=== PATIENT | female | born 1980 | race Caucasian/White ===

== ENCOUNTER → 2018-09-17 10:08 | Outpatient (CLI) | payer OTHER, MEDICAID, SELFPAY ==
--- NOTE | 2018-09-17 | DI.US.S_ITS ---
PROCEDURE: US ABDOMEN COMPLETE INDICATIONS: GENERALIZED ABDOMINAL AND PELVIC PAIN TECHNIQUE: Real-time scanning was performed of the abdominal and retroperitoneal organs, with image documentation. COMPARISON: None. FINDINGS: Liver: Liver is normal in size and homogeneous in echotexture. Gallbladder: Negative. No gallstones or gallbladder wall thickening identified. No pericholecystic fluid or sonographic Osborne sign Biliary ducts: Intrahepatic bile ducts are non-dilated. Extrahepatic bile duct caliber measures 2-4 mm. Normal is 6-7 mm or less in diameter, or 10 mm or less post-cholecystectomy. Pancreas: Visualized portions of the pancreas are sonographically normal. Spleen: Spleen is normal in size and homogeneous in echotexture. Kidneys: Kidneys are normal in size and echotexture. Right kidney measures 10.8 cm long; left kidney measures 10.2 cm long. No hydronephrosis or nephrolithiasis. No solid masses. Aorta: Visualized aorta is normal in caliber at less than 3 cm. Iliacs: Not well visualized due to shadowing bowel gas IVC: Intrahepatic inferior vena cava is patent. Miscellaneous: No free abdominal fluid. IMPRESSION: No acute abnormality seen. Normal appearance of the gallbladder Dictated by: Joshua Yates M.D. on 09/17/2018 at 13:58 Approved by: Joshua Yates M.D. on 09/17/2018 at 14:00
--- NOTE | 2018-09-17 | DI.US.S_ITS ---
PROCEDURE: US PELVIC COMPLETE INDICATIONS: PELVIC AND POST COITAL PAIN TECHNIQUE: Real-time scanning was performed of the pelvic organs, with image documentation. Additional endovaginal scanning was necessary due to incomplete visualization of the adnexal and endometrial structures by transabdominal scanning. COMPARISON: None. FINDINGS: Transabdominal scanning: Limited scanning through the kidneys shows no hydronephrosis. No pathologic free abdominal or pelvic fluid. Endovaginal scanning: Uterus: Uterus is normal in size at 9.7 x 4.0 x 5.9 cm. The endometrium measures 15 mm in combined thickness. Ovaries: Right ovary measures 3.7 x 1.8 x 3.0 cm. A presumed complex hemorrhagic right ovarian cyst measuring 2.2 x 1.3 x 1.4 cm. Left ovary measures 3.8 x 2.1 x 1.1 cm. Simple left physiologic follicle measuring 1.1 x 1.6 x 1.1 cm IMPRESSION: 2.2 cm presumed hemorrhagic involuting right ovarian cyst. At clinical discretion, followup could be performed to document resolution in 6-12 weeks. Dictated by: Joshua Yates M.D. on 09/17/2018 at 14:00 Approved by: Joshua Yates M.D. on 09/17/2018 at 14:03
== END ==
PROVIDERS: PCP Family Medicine; Visit Provider Family Medicine
DX: R10.2 Pelvic and perineal pain (principal); R10.84 Generalized abdominal pain; N94.10 Unspecified dyspareunia; N94.0 Mittelschmerz
CPT/HCPCS: 76700; 76830; 76856

== ENCOUNTER → 2019-02-06 10:40 | Outpatient (CLI) | payer OTHER, MEDICAID, SELFPAY ==
--- NOTE | 2019-02-06 | DI.US.S_ITS ---
PROCEDURE: US PELVIC COMPLETE INDICATIONS: PELVIC PAIN TECHNIQUE: Real-time scanning was performed of the pelvic organs, with image documentation. Additional endovaginal scanning was necessary due to incomplete visualization of the adnexal and endometrial structures by transabdominal scanning. COMPARISON: [facility], , US PELVIC COMPLETE, 09/17/2018, 11:01. FINDINGS: Transabdominal scanning: Limited scanning through the kidneys shows no hydronephrosis. No pathologic free abdominal or pelvic fluid. Endovaginal scanning: Uterus: Uterus is normal in size at 9.7 x 4.0 x 5 point cm. ? Bicornuaet uterine morphology present. The endometrium measures 1.1 mm in combined thickness. Ovaries: Ovaries are normal in size measuring 3.2 x 1.9 x 2.6 cm on the right and 4.0 x 2.7 x 2.9 cm on the left. Decrease in size of thick walled, complex right ovarian cyst now measuring 1.2 x 1.1 x 1.2 cm. 2 simple cysts associated with the left ovary largest measuring 2.3 x 2.1 x 1.9 cm. 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 Decrease in size of hemorrhagic appearing cyst involving the right ovary. Simple left ovarian cyst. Dictated by: Brien SERRANO Interpreted: Vale Anderson MD on 02/06/2019 at 11:45 Approved by: Vale Anderson M.D. on 02/06/2019 at 16:04
== END ==
PROVIDERS: PCP Family Medicine; Visit Provider Family Medicine
DX: R10.2 Pelvic and perineal pain (principal); N83.292 Other ovarian cyst, left side; N83.291 Other ovarian cyst, right side
CPT/HCPCS: 76830; 76856

== ENCOUNTER → 2019-07-30 11:44 | Outpatient (CLI) | payer OTHER, MEDICAID, SELFPAY ==
--- NOTE | 2019-07-30 11:45 | DI.US.S_ITS ---
PROCEDURE: US PELVIC COMPLETE INDICATIONS: PELVIC PAIN TECHNIQUE: Real-time scanning was performed of the pelvic organs, with image documentation. Additional endovaginal scanning was necessary due to incomplete visualization of the adnexal and endometrial structures by transabdominal scanning. COMPARISON: [facility], , PELVIC COMPLETE, 02/06/2019, 10:56. FINDINGS: Transabdominal scanning: Limited scanning through the kidneys shows no hydronephrosis. No pathologic free abdominal or pelvic fluid. Endovaginal scanning: Uterus: Uterus is normal in size at 8.8 x 4.1 x 6.2 cm. The endometrium measures 13 mm in combined thickness. Suggestion of septate versus bicornuate uterine morphology. Ovaries: Right ovary measures 5.4 x 2.4 x 3.6 cm. There is a 3.0 x 1.9 x 2.8 cm complicated cyst in the right ovary. Probable physiologic cyst is also noted measuring 1.4 cm. The left ovary was only visualized transabdominally and measured 1.4 x 0.7 x 1.2 cm. No left-sided ovarian/adnexal mass lesion. IMPRESSION: 1. A 3.0 cm complicated right ovarian cyst. Recommend followup pelvic ultrasound in 6-12 weeks to document stability versus resolution. 2. Suggestion of possible septate versus bicornuate uterine morphology. Consider further characterization by a pelvic MRI if confirmation of morphology is needed for clinical management requirements. 3. No acute sonographic abnormalities identified in the pelvis. Dictated by: Jose Cedeno M.D. on 07/30/2019 at 12:50 Approved by: Jose Cedeno M.D. on 07/30/2019 at 12:56
== END ==
PROVIDERS: PCP Family Medicine; Visit Provider Obstetrics & Gynecology
DX: R10.2 Pelvic and perineal pain (principal); N83.291 Other ovarian cyst, right side; Z87.42 Personal history of other diseases of the female genital tract
CPT/HCPCS: 76830; 76856

== ENCOUNTER → 2019-08-26 18:10 | Outpatient (CLI) | payer OTHER, MEDICAID, SELFPAY ==
--- NOTE | 2019-08-26 | DI.MG.S_ITS ---
BILATERAL DIGITAL SCREENING MAMMOGRAM 3D/2D WITH CAD: 08/26/2019 CLINICAL: Routine screening. Baseline exam. Baseline exam. No prior exams were available for comparison. The tissue of both breasts is extremely dense, which lowers the sensitivity of mammography. Current study was also evaluated with a Computer Aided Detection (CAD) system. No significant masses, calcifications, or other findings are seen in either breast. IMPRESSION: NEGATIVE There is no mammographic evidence of malignancy. A 1 year screening mammogram is recommended. This exam was interpreted at Station ID: [id number]. NOTE: For mammograms, a report in lay terms will be sent to the patient. Approximately 15% of breast malignancies will not be visualized mammographically. In the management of a palpable breast mass, a negative mammogram must not discourage biopsy of a clinically suspicious lesion. Electronically Signed By: Daniel Vasquez M.D. [facility] [place]/:08/26/2019 19:05:00 letter sent: Normal Exam ACR BI-RADS Category 1: Negative [id number]
== END ==
PROVIDERS: PCP Family Medicine; Visit Provider Family Medicine
DX: Z12.31 Encounter for screening mammogram for malignant neoplasm of breast (principal)
CPT/HCPCS: 77063; 77067

== ENCOUNTER → 2020-11-02 16:12 | Outpatient (CLI) | payer OTHER, MEDICAID, SELFPAY ==
--- NOTE | 2020-11-02 | DI.US.S_ITS ---
PROCEDURE: US PELVIC COMPLETE INDICATIONS: OVARIAN CYST TECHNIQUE: Real-time scanning was performed of the pelvic organs, with image documentation. Additional endovaginal scanning was necessary due to incomplete visualization of the adnexal and endometrial structures by transabdominal scanning. COMPARISON: [facility], US, US PELVIC COMPLETE, 10/20/2019, 16:17. FINDINGS: Uterus: Uterus is enlarged measuring 11.2 x 4.9 x 5.8 cm. The endometrium measures 6-7 mm in combined thickness. Possible arcuate or septate uterus incidentally noted, no definite bicornuate appearance seen on today's examination. This could be more definitively evaluated with pelvic MRI as clinically necessary. Ovaries: Right ovary measures 2.6 x 1.3 x 1.8 cm. The left ovary measures 3.1 x 2.0 x 2.3 cm. Left ovarian follicle measuring 2.3 cm with simple appearance. There is mild right sided free fluid which could be physiologic. No evidence of ovarian torsion with Doppler interrogation. Other: No pathologic free abdominal or pelvic fluid. IMPRESSION: Interval resolution of right ovarian cyst. Dictated by: Joshua Yates M.D. on 11/03/2020 at 10:25 Approved by: Joshua Yates M.D. on 11/03/2020 at 10:29
--- NOTE | 2020-11-02 | DI.MG.S_ITS ---
BILATERAL DIGITAL SCREENING MAMMOGRAM 3D/2D WITH CAD: 11/02/2020 CLINICAL: Routine screening. Comparison is made to exam dated: 08/26/2019 [facility]. The tissue of both breasts is extremely dense, which lowers the sensitivity of mammography. Current study was also evaluated with a Computer Aided Detection (CAD) system. No significant masses, calcifications, or other findings are seen in either breast. There has been no significant interval change. IMPRESSION: NEGATIVE There is no mammographic evidence of malignancy. A 1 year screening mammogram is recommended. This exam was interpreted at Station ID: [id number]. NOTE: For mammograms, a report in lay terms will be sent to the patient. Approximately 15% of breast malignancies will not be visualized mammographically. In the management of a palpable breast mass, a negative mammogram must not discourage biopsy of a clinically suspicious lesion. Electronically Signed By: Bob Fitch acr/go:11/02/2020 16:31:05 letter sent: Normal Exam ACR BI-RADS Category 1: Negative 3341F
== END ==
PROVIDERS: PCP Family Medicine; Referring Provider Family Medicine; Visit Provider Family Medicine
DX: Z12.31 Encounter for screening mammogram for malignant neoplasm of breast (principal); N83.201 Unspecified ovarian cyst, right side
CPT/HCPCS: 76830; 76856; 77063; 77067

== ENCOUNTER 2021-07-22 12:00 | Emergency (ER) | payer OTHER, MEDICAID, SELFPAY ==
[2021-07-22 12:09] VITALS: BP 160/105; PULSE 96; RESP 14; TEMP 35.9; O2SAT 100; BMI 27.7
--- NOTE | 2021-07-22 12:12 | DI.RAD.S_ITS ---
PROCEDURE: XR CHEST 1V INDICATIONS: chest pain TECHNIQUE: One view of the chest was acquired. COMPARISON: None. FINDINGS: Surgical changes and devices: None. Lungs and pleura: There are indistinct right perihilar ground-glass opacities. No pleural effusions or pneumothorax. Mediastinum: Mediastinal contours appear normal. Heart size is normal. Bones and chest wall: No suspicious bony lesions. Overlying soft tissues appear unremarkable. IMPRESSION: 1. Indistinct right perihilar ground-glass opacities are nonspecific and may reflect pneumonia, asymmetric edema, or an inflammatory process among other etiologies. Recommend correlation clinically. Dictated by: Faheem Giles M.D. on 07/22/2021 at 14:00 Approved by: Faheem Giles M.D. on 07/22/2021 at 14:04
[2021-07-22 12:53] LABS: Add Manual Diff / Slide Review NO; Basophils Absolute Auto 100 /uL (0-100); Eosinophils Absolute Auto 100 /uL (0-450); Eosinophils Percent Auto 0.7 % (2-4); Hematocrit 38.3 % (36-46); Hemoglobin 12.8 g/dL (12.0-16.0); Lymphocytes Absolute Auto 1300 /uL (1100-4500); Mean Corpuscular HGB Conc 33.4 % (30-36); Mean Corpuscular Hemoglobin 30.5 PG (26-34); Mean Corpuscular Volume 91.2 fL (80-100); Monocytes Absolute Auto 400 /uL (0-900); Monocytes Percent Auto 5.4 % (3-14); Neutrophils Absolute Auto 5100 /uL (1500-7000); Neutrophils Percent Auto 73.9 % (50-75); Platelet Count 269 X10^3/uL (150-400); Red Cell Distribution Width 12.5 % (11.6-14.8); White Blood Cell Count 6.8 X10^3/uL (4.5-11.0)
[2021-07-22 13:01] LABS: D Dimer 245 ng/mL (<230)
[2021-07-22 13:04] LABS: Alanine Aminotransferase 7 IU/L (<35); Albumin 4.4 g/dL (3.5-5.0); Albumin Globulin Ratio 1.9 (1.0-2.8); Alkaline Phosphatase 245 U/L (38-126); Aspartate Aminotransferase 26 IU/L (14-36); BUN Creatinine Ratio 14.5 (6-22); Bilirubin Total 0.4 mg/dL (0.2-1.3); Blood Urea Nitrogen 8 mg/dL (7-17); Calcium 9.4 mg/dL (8.4-10.2); Carbon Dioxide 25 mmol/L (22-32); Chloride 105 mmol/L (98-107); Creatine Kinase 110 U/L (30-135); Estimated Glomerular Filt Rate > 60.0 mL/min (>60); Globulin 2.3 g/dL (1.7-4.1); Glucose 92 mg/dL (70-100); HEMOLYSIS < 15 (0-50); Lipase 32 U/L (23-300); Potassium 4.2 mmol/L (3.4-5.1); Sodium 139 mmol/L (137-145); Total Protein 6.7 g/dL (6.3-8.2)
[2021-07-22 13:15] LABS: Troponin I < 0.012 ng/mL (0.01-0.034)
[2021-07-22 13:19] LABS: CKMB % Relative Index 0.4 % (1.5-5.0); Creatine Kinase MB 0.47 ng/mL (<2.37)
[2021-07-22 16:52] VITALS: BP 161/103; PULSE 95; O2SAT 99
[2021-07-22 17:36] VITALS: PULSE 82
[2021-07-22 18:00] VITALS: PULSE 82
--- NOTE | 2021-07-22 18:18 | ED_ITS ---
HPI - Chest Pain General Chief Complaint: Chest Pain Stated Complaint: Heart Issues, Chest Pain, Abnormal EKG Time Seen by Provider: 07/22/21 18:14 Source: patient Mode of arrival: Ambulatory Limitations: no limitations History of Present Illness HPI narrative: This is a 41-year-old female comes emergency department sent by her primary care provider. Patient had COVID approximately a month ago. She has continued to have some mild dry cough which has been nonproductive she continues to have anosmia with loss of taste and smell. Patient states that she has had some heart palpitations that sometimes feel fast or irregular but not persistently. She denies any chest pain or pressure. She does sometimes feel short of breath particularly with exertion. She has not had any lightheadedness or syncope. She noted that her hands been slightly swollen bilaterally but not persistently. She denies any nausea or vomiting. No issues with bowel movements. No urinary symptoms. No diaphoresis. Patient takes lorazepam and and [place] as needed sometimes cyclobenzaprine and ibuprofen but no other daily prescription medications. She has had multiple surgeries for bilateral cleft palate, partial thyroidectomy. She is allergic to Neosporin. No tobacco, occasional alcohol and no illicit. Family history significant for dad who had a bypass at age 65 but no other known cardiac, pulmonary or embolic history. Related Data Home Medications Medication Instructions Recorded Confirmed cyclobenzaprine 10 mg tablet 10 mg PO TID 10/20/19 10/20/19 flibanserin 100 mg tablet (Addyi) 100 mg PO BEDTIME 10/20/19 10/20/19 hydrocodone 5 mg-acetaminophen 325 1 tab PO Q6H PRN 10/20/19 10/20/19 mg tablet lorazepam PO 10/20/19 10/20/19 polyethylene glycol 3350 17 17 gram PO DAILY 10/20/19 10/20/19 gram/dose oral powder (Miralax) rizatriptan 5 mg tablet 5 mg PO ONCE 10/20/19 10/20/19 Previous Rx's Medication Instructions Recorded ibuprofen 600 mg tablet 600 mg PO Q6HP PRN #30 tab-cap 03/01/17 Allergies Allergy/AdvReac Type Severity Reaction Status Date / Time neomycin [NEOMYCIN] Allergy Mild HIVES AND Verified 07/22/21 12:09 RASH polymyxin B [POLYMYXIN B] Allergy Mild HIVES AND Verified 07/22/21 12:09 RASH Sulfa (Sulfonamide Allergy Verified 07/22/21 12:09 Antibiotics) silk tape Allergy Mild rash and Uncoded 10/20/19 15:51 welts Review of Systems Review of Systems ROS Unobtainable: All systems reviewed & are unremarkable except as noted in HPI and below Patient History Social History Smoking Status: Unknown if ever smoked Smoking Status: Unknown if ever smoked alcohol intake frequency: holidays/special occasions only Substance Use Type: does not use Exam Narrative Exam Narrative: GENERAL: Alert and oriented x three, female in mild distress. HEENT: Head normocephalic, atraumatic, EOMI, pupils reactive, face symmetric, moist mucous membranes NECK: Supple, full range of motion CARDIOVASCULAR: Regular rate and rhythm without murmurs, rubs or gallops. RESPIRATORY: Breath sounds equal bilaterally, no wheezes rales or rhonchi. ABDOMEN: Soft, nontender. Normoactive bowel sounds all 4 quadrants. No guarding or rebound, rigidity, no mass : No CVA tenderness EXTREMITIES: Normal range of motion, no clubbing or edema bilateral hands or feet. Neurovascularly intact NEUROLOGICAL: Cranial nerves II through XII grossly intact. Moving all extremities SKIN: Warm, dry, no petechiae, no rashes or lesions. Initial Vital Signs Initial Vital Signs: Vital Signs Temperature 96.7 F L 07/22/21 12:09 Pulse Rate 96 H 07/22/21 12:09 Respiratory Rate 14 07/22/21 12:09 Blood Pressure 160/105 H 07/22/21 12:09 Pulse Oximetry 100 07/22/21 12:09 Scores HEART Score Heart Score history: Slightly Suspicious Heart Score EKG: Significant ST depression Heart Score Age: < 45 years old Heart Score risk factors: 1-2 risk factors Heart Score troponin: < or = to normal limit Heart Score Total: 3 PERC Score Age greater than or equal to 50 years: No Heart rate greater than or equal to 100 bpm: No Room Air O2 Sat less than 95%: No Unilateral leg swelling: Yes Recent trauma or surgery: No Hemoptysis: No Prior PE or DVT: No Hormone Use: No Total PERC Score: 1 Course Orders Ordered: ED Orders 07/22/21 12:12 XR chest 1V Stat EKG-12 Lead Stat 07/22/21 12:15 Complete Blood Count AUTO DIFF Stat Comprehensive Metabolic Panel Stat DD [D Dimer] Stat Lipase Stat Troponin & CK Cardiac Panel Stat 07/22/21 18:39 CT angio chest PE protocol Stat Vital Signs Vital signs: Vital Signs - 8 hr 07/22/21 16:52 07/22/21 17:36 07/22/21 18:00 Pulse Rate 95 H 82 82 Respiratory Rate Blood Pressure 161/103 H Pulse Oximetry 99 07/22/21 18:30 07/22/21 19:14 Pulse Rate 89 Respiratory Rate 21 Blood Pressure Pulse Oximetry 95 MDM - Chest Pain Lab Data Result diagrams: 07/22/21 12:15 07/22/21 12:15 Labs: Lab Results 07/22/21 07/22/21 07/22/21 Range/Units 12:15 12:15 12:15 WBC 6.8 (4.5-11.0) X10^3/uL RBC 4.20 (4.0-5.2) X10^6/uL Hgb 12.8 (12.0-16.0) g/dL Hct 38.3 (36-46) % MCV 91.2 (80-100) fL MCH 30.5 (26-34) PG MCHC 33.4 (30-36) % RDW 12.5 (11.6-14.8) % Plt Count 269 (150-400) X10^3/uL Neut % (Auto) 73.9 (50-75) % Lymph % (Auto) 19.0 L (25-40) % Alfalfa % (Auto) 5.4 (3-14) % Eos % (Auto) 0.7 L (2-4) % Baso % (Auto) 1.0 (0-2) % Neut # (Auto) 5100 (9237-2252) /uL Lymph # (Auto) 1300 (5734-8846) /uL Alfalfa # (Auto) 400 (0-900) /uL Eos # (Auto) 100 (0-450) /uL Baso # (Auto) 100 (0-100) /uL D-Dimer 245 H (<230) ng/mL Sodium 139 (137-145) mmol/L Potassium 4.2 (3.4-5.1) mmol/L Chloride 105 (98-107) mmol/L Carbon Dioxide 25 (22-32) mmol/L BUN 8 (7-17) mg/dL Creatinine 0.55 (0.52-1.04) mg/dL Estimated GFR > 60.0 (>60) mL/min BUN/Creatinine Ratio 14.5 (6-22) Glucose 92 (70-100) mg/dL Calcium 9.4 (8.4-10.2) mg/dL Total Bilirubin 0.4 (0.2-1.3) mg/dL AST 26 (14-36) IU/L ALT 7 (<35) IU/L Alkaline Phosphatase 245 H (38-126) U/L Total Creatine Kinase 110 (30-135) U/L CK-MB (CK-2) 0.47 (<2.37) ng/mL CK-MB (CK-2) Rel Index 0.4 L (1.5-5.0) % Troponin I < 0.012 (0.01-0.034) ng/mL Total Protein 6.7 (6.3-8.2) g/dL Albumin 4.4 (3.5-5.0) g/dL Globulin 2.3 (1.7-4.1) g/dL Albumin/Globulin Ratio 1.9 (1.0-2.8) Lipase 32 (23-300) U/L Imaging Data Chest x-ray: Radiologist's Impression: BlancaCasandra??41??F??1980 ? Allergy/Adv: neomycin, polymyxin B, Sulfa (Sulfonamide Antibiotics), [silk tape] (More??) Close Chest X-Ray (Signed) Faheem Giles - 07/22/21 Pelvis Ultrasound (Signed) Joshua Yates - 11/02/20 Mammogram Screening (Signed) Bob Fitch - 11/02/20 Mammogram Screening (Signed) Daniel Vasquez - 08/26/19 Pelvis Ultrasound (Signed) Jose Cedeno - 07/30/19 Pelvis Ultrasound (Signed) Aristeo Anderson - 02/06/19 Pelvis Ultrasound (Signed) Joshua Yates - 09/17/18 Abdomen Ultrasound (Signed) Joshua Yates - 09/17/18 Launch?[address] [address] XRay Report Signed Patient: Casandra Rios MR#: [id number] : 1980 Acct:[id number] Age/Sex: 41 / F Date of Service: 07/22/21 Loc: ED Accession Number: [id number] ?? Procedure: XR chest 1V Ordering Provider: Deena Titus MD PROCEDURE:? XR CHEST 1V ? INDICATIONS:? chest pain ? TECHNIQUE:? One view of the chest was acquired.? ? COMPARISON:? None. ? FINDINGS:? ? Surgical changes and devices:? None.? ? Lungs and pleura:? There are indistinct right perihilar ground-glass opacities.? No pleural effusions or pneumothorax.? ? Mediastinum:? Mediastinal contours appear normal.? Heart size is normal.? ? Bones and chest wall:? No suspicious bony lesions.? Overlying soft tissues appear unremarkable.? ? IMPRESSION:? ? 1. Indistinct right perihilar ground-glass opacities are nonspecific and may r eflect pneumonia, asymmetric edema, or an inflammatory process among other etiologies.? Recommend correlation clinically.? ? ? Dictated by: Faheem Giles M.D. on 07/22/2021 at 14:00 ? ? Approved by: Faheem Giles M.D. on 07/22/2021 at 14:04 ECG Data Attestation: I personally reviewed and interpreted this ECG as follows: Prior ECG tracings: not available for review Interpretation: EKG sinus rhythm, rate of 100 LA 164 QRS [address] depression in V4 6. Inverted T-waves in 2 3 AVF with no obvious elevation appreciated. No priors available for comparison. MDM Narrative Medical decision making narrative: This is a 41-year-old female who was sent with palpitations occasional shortness of breath who is approximately a month post COVID. Patient does have some EKG changes she does not have a prior for comparison. She does have some cardiac history but her symptomatology does not seem consistent with acute coronary syndrome. Patient labs reflect a slightly elevated D-dimer this may be more secondary to COVID but with her symptoms of palpitations and dyspnea with exertion we discussed and decision was made to PE scan. Patient's chest x-ray does show some changes I suspect these are post COVID changes. Patient vitals here show some hypertension and pulse in the 90s but no hypoxia and no hypotension at any time. CT angio is negative but shows a small 3mm pulmonary nodule. Is were reviewed with patient. She has had some hypertension but normal oxygenation throughout stay. Discharge Plan Departure Patient Disposition: Home Clinical Impression: Heart palpitations, Pulmonary nodule Instructions: DI for Pulmonary Nodule Activity Restrictions/Additional Instructions: The changes on your chest x-ray did today are likely from your recent COVID infection. You do have some changes to your EKG but no clear changes to your enzyme and I recommend following up with your primary care provider for stress testing in the future particularly with your family history. Your labs today are reassuring, here CT of your chest shows a small pulmonary nodule. Discuss with your physician. Please return for new or worsening symptoms, chest pain, lightheadedness or passing out, persistent vomiting, worsening shortness of breath, new swelling in her extremities or other new or concerning symptoms. Prescriptions: No Action ibuprofen 600 MG tablet 600 mg PO Q6HP PRNQty: 30 RF: 0 hydrocodone-acetaminophen 5-325 mg tablet 1 tab PO Q6H PRNRF: 0 cyclobenzaprine 10 mg tablet 10 mg PO TID RF: 0 lorazepam PO RF: 0 Addyi 100 mg tablet 100 mg PO BEDTIME RF: 0 rizatriptan 5 mg tablet 5 mg PO ONCE RF: 0 polyethylene glycol 3350 [Miralax] 17 gram/dose powder 17 gram PO DAILY RF: 0 Referrals: Altaf Del Rio MD [Primary Care Provider] -
[2021-07-22 18:30] VITALS: PULSE 89; RESP 21
--- NOTE | 2021-07-22 18:39 | DI.CT.S_ITS ---
PROCEDURE: CT ANGIO CHEST PE PROTOCOL INDICATIONS: recent covid infx-resolved, palpitations, chest pain, sob TECHNIQUE: After the administration of intravenous contrast, 2 mm thick sections acquired from the pulmonary apices to the posterior costophrenic angles. 3-dimensional maximum intensity projection (MIP) coronal and sagittal reformats were then acquired through the thorax. For radiation dose reduction, the following was used: automated exposure control, adjustment of mA and/or kV according to patient size. COMPARISON: [facility], [place], XR CHEST 1V, 07/22/2021, 12:57. FINDINGS: Image quality: Excellent. Pulmonary arteries: Pulmonary arteries are normal in size, and demonstrate no intraluminal filling defects to suggest central pulmonary embolism. Lungs and pleura: No pulmonary infiltrate. There is a 3 mm nodule in the right lower lobe (series 6, image 130). No pleural effusions or pneumothorax. Central and peripheral airways are patent. Mediastinum: Heart size is normal, without pericardial effusion. No mediastinal or hilar adenopathy. Thoracic aorta is normal in caliber and enhancement. Esophagus is normal in caliber, without hiatal hernia. Bones and chest wall: No suspicious bony lesions. Ribs and thoracic spine appear intact throughout. Left thyroid lobe is absent. Right thyroid lobe is normal. No axillary or supraclavicular adenopathy. Abdomen: A 5 mm nodule in the posterior hepatic dome is most likely a cyst. Visualized upper abdominal solid organs appear normal in the early arterial phase of enhancement. IMPRESSION: 1. No evidence for pulmonary embolism. 2. No pulmonary infiltrate. 3. A 3 mm nodule in the right lower lobe. Please see enclosed follow-up recommendation. Fleischner Society criteria for SOLID lung nodule followup. Nodule size (mm)Low-risk patientHigh-risk patient?4No follow-up neededFollow-up at 12 mo; if no change, no further follow-up>[id number] CT at 12 mo; if no change, no further follow-up needed.Initial follow-up CT at 6-12 mo, then 18-24 mo if no change. >6-8Initial follow-up CT at 6-12 mo, then 18-24 mo if no change. Initial follow-up CT at 3-6 mo, then 9-12 mo and 24 mo if no change. >8Follow-up CT at 3, 9, 24 mo. Or PET and/or biopsy.Same as for low-risk pts. Dictated by: Vale Anderson M.D. on 07/22/2021 at 20:05 Approved by: Vale Anderson M.D. on 07/22/2021 at 20:08
[2021-07-22 19:14] VITALS: O2SAT 95
== END 2021-07-22 20:32 | disposition home or self-care (01) ==
PROVIDERS: Emergency Medicine; Emergency Provider Emergency Medicine; PCP Family Medicine
DX: R00.2 Palpitations (principal); R91.1 Solitary pulmonary nodule; R06.02 Shortness of breath; R07.9 Chest pain, unspecified
CPT/HCPCS: 36415; 71045; 71275; 80053; 82550; 82553; 83690; 84484; 85025; 85379; 93005; 93010; 99284; Q9967

== ENCOUNTER → 2021-08-11 11:08 | Outpatient (CLI) | payer OTHER, MEDICAID, SELFPAY ==
--- NOTE | 2021-08-11 11:09 | DI.US.S_ITS ---
PROCEDURE: US PELVIC COMPLETE INDICATIONS: MENORRHAGIA TECHNIQUE: Real-time scanning was performed of the pelvic organs, with image documentation. Additional endovaginal scanning was necessary due to incomplete visualization of the adnexal and endometrial structures by transabdominal scanning. COMPARISON: , US, US PELVIC COMPLETE, 11/02/2020, 16:24. FINDINGS: Uterus: Homogeneous echotexture, anteverted, and measures 8.6 x 6.2 x 5.3 cm, The endometrium measures 11.1 mm in combined thickness. An ovoid lesion is seen within the left mid uterus, lateral to the endometrium, most consistent with an intramural fibroid, measuring 0.9 x 1.2 x 1.3 cm. Hypoechoic lesion within the cervix, compatible with a nabothian cyst. Ovaries: The right ovary measures 2.8 x 3.2 x 2.1 cm. A complex hypoechoic lesion seen within the ovary, measuring up to 1.4 cm. The left ovary measures 4.1 x 3.7 x 3 cm. Anechoic lesion measuring up to 3 cm, most consistent with a simple cyst. Other: No pathologic free abdominal or pelvic fluid. IMPRESSION: 1. Myomatous change of the uterus. 2. Complex hypoechoic lesion within the right ovary, which may reflect a hemorrhagic cyst. Dictated by: Hussein Ghosh M.D. on 08/11/2021 at 13:21 Approved by: Hussein Ghosh M.D. on 08/11/2021 at 13:25
== END ==
PROVIDERS: PCP Family Medicine; Referring Provider Obstetrics & Gynecology; Visit Provider Obstetrics & Gynecology
DX: N92.0 Excessive and frequent menstruation with regular cycle (principal)
CPT/HCPCS: 76830; 76856

== ENCOUNTER → 2021-10-14 10:35 | Outpatient (CLI) | payer OTHER, MEDICAID, SELFPAY ==
[2021-10-14 13:27] LABS: Prolactin 15.2 ng/mL (3.0-18.6)
[2021-10-14 13:42] LABS: TSH w/ Reflex to FT4 2.24 uIU/mL (0.47-4.68)
[2021-10-14 15:49] LABS: Follicle Stimulating Hormone 85.3 mIU/mL; Luteinizing Hormone 55.5 mIU/mL
== END ==
PROVIDERS: PCP Family Medicine; Referring Provider Obstetrics & Gynecology; Visit Provider Obstetrics & Gynecology
DX: N92.4 Excessive bleeding in the premenopausal period (principal)
CPT/HCPCS: 36415; 83001; 83002; 84146; 84443

== ENCOUNTER → 2022-03-31 12:48 | Outpatient (CLI) | payer OTHER, MEDICAID, SELFPAY ==
--- NOTE | 2022-03-31 12:49 | DI.US.S_ITS ---
PROCEDURE: US PELVIC COMPLETE INDICATIONS: FOLLOW UP RIGHT ADNEXAL MASS TECHNIQUE: Real-time scanning was performed of the pelvic organs, with image documentation. Additional endovaginal scanning was necessary due to incomplete visualization of the adnexal and endometrial structures by transabdominal scanning. COMPARISON: Merged With [facility], US, US PELVIC COMPLETE, 08/11/2021, 11:28. Merged With [facility], US, US PELVIC COMPLETE, 11/02/2020, 16:24. FINDINGS: Uterus: Uterus is normal in size at 8.1 x 5.5 x 4.1 cm. The myometrium is homogeneous. The endometrium measures 6-7 mm combined thickness. There is a 1.7 cm left mid uterus intramural fibroid seen. Ovaries: The right ovary measures 2.8 x 2.5 x 1.6 cm. The left ovary measures 1.5 x 1.7 x 1.5 cm. The previously seen right ovarian complex cyst has resolved. The ovaries have a normal sonographic appearance. No adnexal masses are seen. Other: No pathologic free abdominal or pelvic fluid. IMPRESSION: Resolution of the previously seen right ovarian complex cyst. Uterine fibroid again seen. We strive to produce accurate, complete, and clear reports of imaging services. To assist us in improving patient care, this report was composed using standard report templates and voice recognition software. Therefore, it may contain abnormal punctuation, insertions and/or omissions. Occasional wrong-word or sound-alike substitutions may occur. Though we review the report and make efforts to correct it, we do recommend that the report be read carefully in proper context to recognize any text inaccuracies. Dictated by: Kelechi Henderson M.D. on 03/31/2022 at 12:57 Approved by: Kelechi Henderson M.D. on 03/31/2022 at 12:59
== END ==
PROVIDERS: PCP Family Medicine; Referring Provider Obstetrics & Gynecology; Visit Provider Obstetrics & Gynecology
DX: N92.4 Excessive bleeding in the premenopausal period (principal); D25.1 Intramural leiomyoma of uterus
CPT/HCPCS: 76830; 76856

== ENCOUNTER → 2022-04-19 14:20 | Outpatient (CLI) | payer OTHER, MEDICAID, SELFPAY ==
[2022-04-19 17:03] LABS: Follicle Stimulating Hormone 8.33 mIU/mL; Luteinizing Hormone 6.32 mIU/mL
[2022-04-19 17:19] LABS: Estradiol, Total 97.7 pg/mL
== END ==
PROVIDERS: PCP Family Medicine; Referring Provider Obstetrics & Gynecology; Visit Provider Obstetrics & Gynecology
DX: N95.1 Menopausal and female climacteric states (principal)
CPT/HCPCS: 36415; 82670; 83001; 83002

== ENCOUNTER 2023-01-18 10:46 | Day surgery (SDC) | payer OTHER, MEDICAID, SELFPAY ==
[2023-01-18 11:03] VITALS: BMI 30.7
[2023-01-18 11:08] VITALS: BP 130/94; PULSE 101; RESP 19; TEMP 36.1; O2SAT 100
[2023-01-18] MEDS: LACTATED RINGERS 1,000 ML 42 ML IV (11:21)
--- NOTE | 2023-01-18 12:27 | PM.PREOP ---
Pre-operative Note Interval Note History & Physical reviewed/Exam performed by Physician: Yes Changes to H&P: No
--- NOTE | 2023-01-18 12:28 | PM.HP.1 ---
History of Present Illness History of Present Illness Date Patient Seen: 01/18/23 Time Patient Seen: 12:28 Chief complaint: Left Tube Placement Narrative: 42-year-old female last seen in clinic 11/22/2022 with known left chronic eustachian tube dysfunction and in keto pexy incompletely managed with medical therapy presents for left tube placement under anesthesia due to severe anxiety. She has a history of left tube placement in 2010. No interval health changes. [facility] Social History Smoking Status: Former smoker alcohol intake: current Meds Home Medications and Allergies Home Medications Medication Instructions Recorded Confirmed Type cyclobenzaprine 10 mg tablet 10 mg PO TID 10/20/19 01/18/23 History hydrocodone 5 mg-acetaminophen 325 1 tab PO Q6H PRN Pain (Scale Score 10/20/19 01/18/23 History mg tablet 1-3) polyethylene glycol 3350 17 17 gram PO DAILY 10/20/19 01/18/23 History gram/dose oral powder (Miralax) rizatriptan 5 mg tablet 5 mg PO ONCE 10/20/19 01/18/23 History ibuprofen 600 mg tablet 600 mg PO Q6HP PRN Pain (Scale 01/18/23 01/18/23 History Score 1-3) lorazepam 1 mg tablet 1 mg PO TID PRN Anxiety 01/18/23 01/18/23 History Allergies Allergy/AdvReac Type Severity Reaction Status Date / Time neomycin [NEOMYCIN] Allergy Mild HIVES AND Verified 01/18/23 11:00 RASH polymyxin B [POLYMYXIN B] Allergy Mild HIVES AND Verified 01/18/23 11:00 RASH Sulfa (Sulfonamide Allergy Mild hives, rash Verified 01/18/23 11:00 Antibiotics) silk tape Allergy Mild rash and Uncoded 11/02/21 13:18 welts Review of Systems Review of Systems Narrative: Negative except as listed in the HPI Exam Vital Signs (past 8 hours): - 01/18/23 11:08 Temperature 97.0 F L Pulse Rate 101 H Respiratory Rate 19 Blood Pressure 130/94 H Pulse Oximetry 100 Oxygen Delivery Method Room Air Oxygen Delivery Method Room Air Narrative Exam Narrative: Well-developed well-nourished, heart regular rate and rhythm without murmur, lungs clear to auscultation bilaterally Assessment & Plan Assessment & Plan narrative: Assessment: Left chronic eustachian tube dysfunction, left incudopexy, history of cleft lip and palate status post repair Plan: Following discussion of the material risks benefits complications and alternatives, the patient elected to proceed.
--- NOTE | 2023-01-18 12:30 | PM.OP.1 ---
Operative Date/Time/Diagnoses Date of procedure: 01/18/23 Time of procedure: 12:54 Pre-op diagnosis: Chronic eustachian tube dysfunction, left incudopexy, history of cleft lip and palate status post repair, anxiety Post-op diagnosis: same (microperforation of TM) Procedure & Clinicians Procedure: Left myringotomy with grommet T-tube placement under general anesthesia Same procedure as scheduled: Yes Indications: 42Year old with the above diagnoses incompletely managed with medical therapy presents for the above procedure. Following discussion of the material risks benefits complications and alternatives, the patient elected to proceed. Surgeon: Chip Bell Click Yes if Unassisted: Yes Anesthesia Type: General Operative Notes Findings: atrophic posterior TM but no incudopexy while under anesthesia. Microperforation present inferior central TM before tube placement. Dry middle ear. Tube placed ant/superiorly in clear area, other areas obstructed with patchy myringosclerosis. Estimated Blood Loss (mL): 0 Procedure in detail: Following identification and confirmation of consent, the patient was brought to the operating suite and placed in the supine position. General mask anesthesia was administered. Under the operating microscope, on the left side, I performed an anterior-superior myringotomy. A grommet T-tube was placed followed by Ciprodex drops pumped into the middle ear. The patient was awakened in the operating room and taken to recovery room in stable condition without known complication. Complications: none Post-operative Condition: stable Disposition: same day surgery Plan for aftercare: Patient has Ciprodex to use another dose tonight and in the morning, follow-up as scheduled
--- NOTE | 2023-01-18 12:43 | SUR.OPER ---
Supine on padded OR bed, head on pillow, arms secured on padded arm boards at <90 degrees abduction, legs uncrossed, safety belt at thigh, tape over blanket over lower legs.
[2023-01-18] MEDS: CIPROFLOXACIN/DEXAMETH OTIC SUSP 4 DROPS EAR-BOTH (12:47)
[2023-01-18 13:00] VITALS: BP 135/92; PULSE 94; RESP 18; TEMP 36.4; O2SAT 98
[2023-01-18 13:04] VITALS: BP 130/90; PULSE 94; RESP 18; TEMP 36.6; O2SAT 96
[2023-01-18 13:12] VITALS: BP 132/91; PULSE 86; RESP 15; TEMP 36.4; O2SAT 96
[2023-01-18 13:17] VITALS: BP 133/89; PULSE 87; RESP 17; TEMP 36.4; O2SAT 99
== END 2023-01-18 13:30 | disposition home or self-care (01) ==
PROVIDERS: PCP Family Medicine; Referring Provider Otolaryngology; Visit Provider Otolaryngology
PROC: (CPT 69436; principal; 2023-01-18 12:00)
DX: H69.82 Other specified disorders of Eustachian tube, left ear (principal); H73.812 Atrophic flaccid tympanic membrane, left ear; F41.9 Anxiety disorder, unspecified
CPT/HCPCS: 69436; 81025; J2250; J2704; J3010

== ENCOUNTER → 2024-01-24 14:07 | Outpatient (CLI) | payer OTHER, MEDICAID, SELFPAY ==
--- NOTE | 2024-01-24 | DI.US.S_ITS ---
PROCEDURE: US PELVIC COMPLETE INDICATIONS: OVARIAN CYST TECHNIQUE: Real-time scanning was performed of the pelvic organs, with image documentation. Additional endovaginal scanning was necessary due to incomplete visualization of the adnexal and endometrial structures by transabdominal scanning. COMPARISON: [facility], US, US PELVIC COMPLETE, 03/31/2022, 13:58. FINDINGS: Uterus: Uterus is anteverted and normal in size at 7.8 x 4.0 x 5.0 cm. The myometrium is homogeneous. The endometrium measures 3.9 mm combined thickness. There is a left midline intramural fibroid which measures 0.8 x 1.3 x 1.1 cm. Previously this measured 1.7 x 1.8 x 1.6 cm on the study dated March 31, 2022. Ovaries: The right ovary measures 2.6 x 2.3 x 1.6 cm, with a calculated ovarian volume of 4.8 cc. The left ovary is not visualized. The right ovary has a normal sonographic appearance. There are fewer than 12 follicles in the right ovary. A dominant 1.1 cm follicles visualized. No adnexal masses are seen. Other: No pathologic free abdominal or pelvic fluid. IMPRESSION: 1. Uterine fibroid. 2. Simple right ovarian follicular cyst. We strive to produce accurate, complete, and clear reports of imaging services. To assist us in improving patient care, this report was composed using standard report templates and voice recognition software. Therefore, it may contain abnormal punctuation, insertions and/or omissions. Occasional wrong-word or sound-alike substitutions may occur. Though we review the report and make efforts to correct it, we do recommend that the report be read carefully in proper context to recognize any text inaccuracies. Dictated by: Ana Virgen M.D. on 01/24/2024 at 16:24 Approved by: Ana Virgen M.D. on 01/24/2024 at 16:26
== END ==
PROVIDERS: PCP Family Medicine; Referring Provider Family Medicine; Visit Provider Family Medicine
DX: N83.291 Other ovarian cyst, right side (principal); D25.1 Intramural leiomyoma of uterus
CPT/HCPCS: 76830; 76856

== ENCOUNTER → 2024-05-14 16:37 | Outpatient (CLI) | payer OTHER, MEDICAID, SELFPAY ==
--- NOTE | 2024-05-14 16:39 | DI.MRI.S_ITS ---
PROCEDURE: MR ANKLE LT WO CON INDICATIONS: Pain in left ankle and joints of left foot TECHNIQUE: Noncontrast sagittal T1 spin echo and T2 fast spin echo with fat saturation, axial proton density fast spin echo and T2 fast spin echo with fat saturation, coronal T1 spin echo and T2 fast spin echo with fat saturation through the ankle/hindfoot. COMPARISON: None. FINDINGS: Image quality: Excellent Tendons: Mild tenosynovitis of the posterior tibialis and the flexor digitorum longus. The flexor hallucis longus is unremarkable. The extensor tendons are unremarkable. Mild tenosynovitis of the peroneal tendons, without tear. Mild tendinosis of the Achilles tendon without tear. Ligaments: The anterior and the posterior tibiofibular ligament are intact. Marked thickening of the anterior talofibular ligament with indistinctness of its fiber, likely representing low-grade tear. No full-thickness tear of the anterior talofibular ligament. Intermediate signal of the posterior talofibular ligament, representing prior sprain as well. The calcaneofibular ligament is somewhat indistinct, likely representing prior sprain. The deep portion of the deltoid ligament is unremarkable. Sinus tarsi: No fibrosis. Plantar fascia: Unremarkable. Muscles: Normal in signal. No muscle edema or fatty atrophy. Bones: Normal in signal. No marrow edema. No acute fracture. Moderate tibiotalar effusion. Moderate amount of fluid within the posterior subtalar recess. Diffuse subcutaneous edema of the ankle, extending to the dorsal foot. IMPRESSION: 1. Low-grade tear of the anterior talofibular ligament. Additional sprain of the lateral ankle ligaments. No full-thickness tear of the lateral ankle ligaments. 2. Diffuse subcutaneous edema of the ankle, extending to the dorsal foot. Dictated by: Emilee Hartman M.D. on 05/15/2024 at 10:15 Approved by: Emilee Hartman M.D. on 05/15/2024 at 10:25
== END ==
PROVIDERS: PCP Family Medicine; Referring Provider Family Medicine; Visit Provider Family Medicine
DX: S93.492A Sprain of other ligament of left ankle, initial encounter (principal); M25.572 Pain in left ankle and joints of left foot; R60.0 Localized edema
CPT/HCPCS: 73721

== ENCOUNTER → 2024-06-16 12:36 | Outpatient (CLI) | payer OTHER, MEDICAID, SELFPAY ==
--- NOTE | 2024-06-16 12:38 | DI.RAD.S_ITS ---
PROCEDURE: XR ANKLE LT MIN 3V INDICATIONS: Pain in left ankle and joints of left foot TECHNIQUE: 3 views of the ankle were acquired. COMPARISON: [facility], MR, MR ANKLE LT WO CON, 05/14/2024, 16:56. FINDINGS: Bones: No fractures or dislocations. Ankle mortise is normally aligned. No suspicious bony lesions. Soft tissues: No tibiotalar joint effusion. Achilles tendon appears normal. IMPRESSION: No visualized acute fracture or dislocation. However, if clinical concern and/or pain persist, short interval imaging followup in 7-10 days is recommended, as occult injury cannot be definitively excluded. Dictated by: Hilda Martin M.D. on 06/16/2024 at 21:43 Approved by: Hilda Martin M.D. on 06/16/2024 at 21:43
== END ==
PROVIDERS: PCP Family Medicine; Referring Provider Family Medicine; Visit Provider Family Medicine
DX: M25.572 Pain in left ankle and joints of left foot (principal)
CPT/HCPCS: 73610

== ENCOUNTER → 2024-10-02 14:24 | Outpatient (CLI) | payer OTHER, SELFPAY ==
--- NOTE | 2024-10-02 | DI.MG.S_ITS ---
BILATERAL DIGITAL SCREENING MAMMOGRAM 3D/2D WITH CAD: 10/02/2024 CLINICAL: Routine screening. Comparison is made to exams dated: 11/02/2020 mammogram and 08/26/2019 mammogram - [facility]. The breasts are heterogeneously dense, which may obscure small masses (category c / 51-75% glandular tissue). Current study was also evaluated with a Computer Aided Detection (CAD) system. No significant masses, calcifications, or other findings are seen in either breast. There has been no significant interval change. IMPRESSION: NEGATIVE There is no mammographic evidence of malignancy. A 1 year screening mammogram is recommended. Based on the Tyrer Cuzick model (a risk assessment model) the patient's lifetime risk is 8.5% and her 10 year risk is 1.5%. According to the ACR, ACS, and NCCN guidelines, an annual breast MRI exam along with mammogram is recommended if the patient's lifetime risk is 20% or greater. This exam was interpreted at Station ID: [id number]. NOTE: For mammograms, a report in lay terms will be sent to the patient. Approximately 15% of breast malignancies will not be visualized mammographically. In the management of a palpable breast mass, a negative mammogram must not discourage biopsy of a clinically suspicious lesion. Electronically Signed By: Yumiko West M.D., Ph.D. /go:10/06/2024 05:21:59 letter sent: Normal Exam ACR BI-RADS Category 1: Negative
== END ==
PROVIDERS: PCP Family Medicine; Referring Provider Family Medicine; Visit Provider Family Medicine
DX: Z12.31 Encounter for screening mammogram for malignant neoplasm of breast (principal); R92.333 Mammographic heterogeneous density, bilateral breasts
CPT/HCPCS: 77063; 77067

== ENCOUNTER → 2025-03-25 15:17 | Outpatient (CLI) | payer OTHER, SELFPAY ==
--- NOTE | 2025-03-25 15:19 | DI.RAD.S_ITS ---
PROCEDURE: XR ANKLE LT 2V INDICATIONS: ANK PAIN TECHNIQUE: 3 views of the left ankle were acquired. COMPARISON: [facility], MR, MR ANKLE LT WO CON, 05/14/2024, 16:56. [facility], CR, XR ANKLE LT MIN 3V, 06/16/2024, 12:41. FINDINGS: Bones: There is a small speck of bone noted inferior to the tip of the fibula which may represent an old avulsion fracture. No new fractures or dislocations. Ankle mortise is normally aligned. No suspicious bony lesions. Soft tissues: No tibiotalar joint effusion. Achilles tendon appears normal. No significant ankle swelling is seen. IMPRESSION: 1. No acute bony abnormality or significant effusion. 2. Evidence of old fibular tip lateral malleolar avulsion fracture. Dictated by: Faheem Tello M.D. on 03/25/2025 at 16:10 Approved by: Faheem Tello M.D. on 03/25/2025 at 16:17
== END ==
PROVIDERS: PCP Family Medicine; Referring Provider Family Medicine; Visit Provider Family Medicine
DX: M25.572 Pain in left ankle and joints of left foot (principal)
CPT/HCPCS: 73610

== ENCOUNTER → 2025-08-27 07:58 | Outpatient (CLI) | payer OTHER, SELFPAY ==
--- NOTE | 2025-08-27 | DI.US.S_ITS ---
PROCEDURE: US ABDOMEN COMPLETE INDICATIONS: PAIN TECHNIQUE: Real-time scanning was performed of the abdominal and retroperitoneal organs, with image documentation. COMPARISON: [facility], US, US ABDOMEN COMPLETE, 09/17/2018, 10:46. FINDINGS: Liver: Liver is normal in size and homogeneous in echotexture. Gallbladder: Normal in appearance. No gallstones or gallbladder wall thickening. Biliary ducts: Intrahepatic bile ducts are non-dilated. Extrahepatic bile duct caliber measures 6.0 mm. Normal is 6-7 mm or less in diameter, or 10 mm or less post-cholecystectomy. Pancreas: Visualized portions of the pancreas are sonographically normal. Spleen: Spleen is normal in size and homogeneous in echotexture. Kidneys: Kidneys are normal in size and echotexture. Right kidney measures 10.3 cm long; left kidney measures 9.6 cm long. No hydronephrosis or nephrolithiasis. No solid masses. Aorta: Visualized aorta is normal in caliber at less than 3 cm. Iliacs: Proximal common iliac arteries are normal in caliber at less than 2.5 cm. IVC: Intrahepatic inferior vena cava is patent. Miscellaneous: No free abdominal fluid. IMPRESSION: Normal abdominal ultrasound. Dictated by: Bryan Coombs M.D. on 08/27/2025 at 11:45 Approved by: Bryan Coombs M.D. on 08/27/2025 at 11:46
--- NOTE | 2025-08-27 08:00 | DI.US.S_ITS ---
PROCEDURE: US PELVIC COMPLETE INDICATIONS: Abdominal pain/pelvic cyst TECHNIQUE: Real-time scanning was performed of the pelvic organs, with image documentation. Additional endovaginal scanning was necessary due to incomplete visualization of the adnexal and endometrial structures by transabdominal scanning. COMPARISON: [facility], US, US PELVIC COMPLETE, 01/24/2024, 14:16. FINDINGS: Uterus: Uterus is anteverted and normal in size at 6.7 x 3.3 x 4.6 cm. The myometrium is homogeneous. The endometrium measures 2.9 mm combined thickness. Right anterior intramural fibroid measuring 7 x 7 x 7 millimeters. Ovaries: The right ovary measures 3.0 x 3.5 x 1.7 cm, with a calculated ovarian volume of 9.6 cc. The left ovary measures 3.2 x 2.1 x 1.9 cm, with a calculated ovarian volume of 6.8 cc. Left ovarian dominant follicle versus simple cyst measuring 1.7 centimeters. The ovaries have a normal sonographic appearance. Less than 12 follicles can be seen in each ovary. No adnexal masses are seen. Other: No pathologic free abdominal or pelvic fluid. IMPRESSION: Uterine fibroid measuring 7 millimeters. Dominant left ovarian follicle versus simple cyst measuring 1.7 centimeters. We strive to produce accurate, complete, and clear reports of imaging services. To assist us in improving patient care, this report was composed using standard report templates and voice recognition software. Therefore, it may contain abnormal punctuation, insertions and/or omissions. Occasional wrong-word or sound-alike substitutions may occur. Though we review the report and make efforts to correct it, we do recommend that the report be read carefully in proper context to recognize any text inaccuracies. Dictated by: Bryan Coombs M.D. on 08/27/2025 at 11:47 Approved by: Bryan Coombs M.D. on 08/27/2025 at 12:13
== END ==
LOC: US 07:59
PROVIDERS: PCP Family Medicine; Referring Provider Family Medicine; Visit Provider Family Medicine
DX: R10.9 Unspecified abdominal pain (principal); N83.209 Unspecified ovarian cyst, unspecified side; D25.1 Intramural leiomyoma of uterus
CPT/HCPCS: 76700; 76830; 76856